=== PATIENT | female | born 1995 | race Caucasian/White ===

== ENCOUNTER 2017-09-05 16:32 | Emergency (ER) | payer OTHER ==
[2017-09-05 16:41] VITALS: BP 138/84
--- NOTE | 2017-09-05 16:45 | UC ---
Throat Pain/Nasal René HPI - HPI Summary HPI Summary: pt c/o nasal congestion, sinus tenderness X 3 weeks. - History of Current Complaint Stated Complaint: RENÉ Time Seen by Provider: 09/05/17 16:35 Hx Obtained From: Patient ?: No Onset/Duration: Gradual Onset, Lasting Weeks - 3, Still Present, Worse Since - onset Severity: Mild Cough: None Associated Signs & Symptoms: Positive: Sinus Discomfort, Other - PND - Epiglottits Risk Factors Epiglottis Risk Factors: Negative - Allergies/Home Medications Allergies/Adverse Reactions: Allergies Allergy/AdvReac Type Severity Reaction Status Date / Time No Known Allergies Allergy Verified 09/05/17 16:41 Home Medications: Home Medications Dextromethorphan-Phenylephrine [Day Time Multi-Symptom Co 10-5-325 mg] 1 cap PO DAILY 09/05/17 [History Confirmed 09/05/17] Fluticasone NASAL SPRAY 50MCG* [Flonase NASAL SPRAY 50MCG*] 2 spray BOTH NARES DAILY 09/05/17 [History Confirmed 09/05/17] Norethindrone Acetate-Ethinyl [Lo Loestrin Fe 1 mg-10 Mcg / 10 Mcg] 1 tab PO DAILY 09/05/17 [History Confirmed 09/05/17] Pseudoephedrine HCL ER TAB* [Sudafed 12 Hour*] 120 mg PO BID 09/05/17 [History Confirmed 09/05/17] PMH/Surg Hx/FS Hx/Imm Hx Previously Healthy: Yes - Surgical History Surgical History: Yes Surgery Procedure, Year, and Place: [facility] - Family History Known Family History: Positive: Cardiac Disease - Social History Occupation: Employed Full-time Lives: With Family Alcohol Use: Occasionally Substance Use Type: None Smoking Status (MU): Never Smoked Tobacco Have You Smoked in the Last Year: No Review of Systems Constitutional: Negative, Other - Pt states that she "never gets a fever when she is sick" Skin: Negative Eyes: Negative ENT: Sinus Congestion, Sinus Pain/Tenderness, Other - PND Respiratory: Negative Cardiovascular: Negative Gastrointestinal: Negative Genitourinary: Negative Motor: Negative Neurovascular: Negative Musculoskeletal: Negative Neurological: Headache Psychological: Negative Is Patient Immunocompromised?: No All Other Systems Reviewed And Are Negative: Yes Physical Exam Triage Information Reviewed: Yes Appearance: Well-Appearing Vital Signs: Initial Vital Signs Temp 98.1 F 09/05/17 16:37 Pulse 86 09/05/17 16:37 Resp 16 09/05/17 16:37 BP 138/84 09/05/17 16:37 Pulse Ox 100 09/05/17 16:37 Vital Signs Reviewed: Yes Eye Exam: Normal ENT: Positive: Nasal congestion Neck exam: Normal Respiratory Exam: Normal Cardiovascular Exam: Normal Musculoskeletal Exam: Normal Neurological Exam: Normal Psychological Exam: Normal Skin Exam: Normal Throat Pain/Nasal Course/Dx - Differential Dx/Diagnosis Differential Diagnosis/HQI/PQRI: Sinusitis Provider Diagnoses: sinusitis Discharge - Discharge Plan Condition: Stable Disposition: HOME Prescriptions: Amoxicillin PO (*) [Amoxicillin 875 MG (*)] 875 mg PO Q12H #20 tab Patient Education Materials: Sinusitis (ED) Referrals: [facility] [Outside] - If Needed
== END 2017-09-05 16:51 | disposition home or self-care (01) ==
LOC: UCCORT 16:32
DX: J32.9 Chronic sinusitis, unspecified (principal)
CPT/HCPCS: 99202; G0463

== ENCOUNTER 2017-12-24 09:19 | Emergency (ER) | payer OTHER ==
[2017-12-24 09:31] VITALS: BP 133/87
--- NOTE | 2017-12-24 09:51 | UC ---
Timmy Bone Jennifer, scribed for Stephanie Prince MD on 12/24/17 at 0946 . Abdominal Pain Female HPI - HPI Summary HPI Summary: The patient is a 22 year old female who presents with abdominal pain in the RUQ for three days. The patient reports the pain is a constant pulled muscle feeling and rates it a 6/10 today. Deep breaths, movement, palpation increase pain. Pt states that she also noticed that food aggravates the pain and she is concerned for her gallbladder. Pt states that is she sits still, her pain "goes down" to 2/10. She additionally complains of on-and-off nausea, diarrhea, and belching. No back pain The patient denies issues with passing gas, dysuria, fever, and chill. She took 800 mg of Ibuprofen two times, but it didnt help. The patient also adds that she got an IUD in June and has an irregular menstrual cycle but thinks her last cycle was around Nov 22. Patients medications reviewed this visit. - History of Current Complaint Chief Complaint: UCAbdominalPain Stated Complaint: ABD PAIN Hx Obtained From: Patient Hx Last Menstrual Period: 11/22/17 Onset/Duration: Sudden Onset, Lasting Days, Still Present Timing: Constant Severity Initially: Moderate Severity Currently: Moderate Pain Intensity: 6 Pain Scale Used: 0-10 Numeric Location: Discrete At: RUQ Radiates: No Character: Other - like a "Pulled muscle" Aggravating Factor(s): Food, Movement, Deep Breaths Alleviating Factor(s): Nothing Associated Signs and Symptoms: Positive: Other: - intermittent nausea, diarrhea , belching. NEGATIVE: issues with passing gas, dysuria, fever, chill Allergies/Adverse Reactions: Allergies Allergy/AdvReac Type Severity Reaction Status Date / Time No Known Allergies Allergy Verified 12/24/17 09:31 PMH/Surg Hx/FS Hx/Imm Hx Previously Healthy: Yes - NEG: HTN, DM Neurological History: Migraine - Surgical History Surgical History: Yes Surgery Procedure, Year, and Place: [facility] - Family History Known Family History: Positive: Cardiac Disease, Hypertension, Diabetes - Social History Alcohol Use: Occasionally Substance Use Type: None Smoking Status (MU): Never Smoked Tobacco Have You Smoked in the Last Year: No Review of Systems Constitutional: Negative - Fver, chills Gastrointestinal: Abdominal Pain, Diarrhea, Nausea, Other - Belching Genitourinary: Negative - Issues with passing gas, dysuria All Other Systems Reviewed And Are Negative: Yes Physical Exam Triage Information Reviewed: Yes Vital Signs: Initial Vital Signs Temp 97.7 F 12/24/17 09:28 Pulse 84 12/24/17 09:28 Resp 17 12/24/17 09:28 BP 133/87 12/24/17 09:28 Pulse Ox 100 12/24/17 09:28 Vital Signs Reviewed: Yes Eye Exam: Normal Eyes: Positive: Conjunctiva Clear ENT Exam: Normal ENT: Positive: Normal ENT inspection, Hearing grossly normal, Pharynx normal, Pharyngeal erythema, TMs normal Dental Exam: Normal Neck exam: Normal Neck: Positive: Supple, Nontender, No Lymphadenopathy Respiratory Exam: Normal Respiratory: Positive: Chest non-tender, Lungs clear, Normal breath sounds, No respiratory distress, No accessory muscle use Cardiovascular Exam: Normal Cardiovascular: Positive: RRR, No Murmur Abdomen Description: Positive: Other: - Mild TTP inferior right lower rib margin , anterior surface. No guarding, no rebound. soft + BS no hepatomegaly. No childress's no CVA Bowel Sounds: Positive: Present Musculoskeletal Exam: Normal Musculoskeletal: Positive: Strength Intact Neurological Exam: Normal Neurological: Positive: Alert, Muscle Tone Normal Psychological Exam: Normal Psychological: Positive: Normal Response To Family Skin Exam: Normal Diagnostics - Laboratory Diagnostic Studies Completed/Ordered: Ultrasound Abdomen. Interpreted by a radiologist. IMPRESSION: Negative RIGHT upper quadrant ultrasound. Dr. Prince has reviewed this report. Re-Evaluation - Re-Evaluation First Eval Comment: reviewed ultrasound with pt. d/w pt regarding gerd, shyla and acalculus cholecysitis - low suspicion. recommend heat. motrin/apap. rest. f /u with PCP in [place]. strict return precautions discussed. Pt states understanding and agreement with plan. SO at bedside Abd Pain Female Course/Dx - Course Course Of Treatment: Pt presents with right anterior low rib, abd pain x 24 hour. Pain worse with movement and palpation. Pt states pain wirse with food, but better with rest. no analgesia taken today, motrin tomorrow. pt with mild RUQ with direct palp. easily changes positioin without discomfort. Will check ultrasound for stones. APAP (after second to npo status). reassess - Differential Dx/Diagnosis Provider Diagnoses: abdominal pain Discharge - Discharge Plan Condition: Stable Disposition: HOME Patient Education Materials: Acute Abdominal Pain (ED) Referrals: No Primary Care Phys,NOPCP [Primary Care Provider] - Additional Instructions: The doctor that evaluated you today thinks it is okay for you to go home. The following is recommended: - Alternate ibuprofen (Advil, Motrin) and Tylenol every 3 hours for pain. Take with food. Do NOT take for more than 4-5 days. Take with food. - Apply heat to your abdomen - slow, gentle stretching exercises - eat small, frequent meals. Start with bland foods: dired toast, crackers, scrambled eggs, crackers. Wait until you are feeling better for 24 hours before eating spicy food, acidic food, tomato based food, fried food. - You should schedule a re-evaluation with your primary doctor in [place] in 2- 3 days. - If you develop fevers, vomiting, increased pain, shortness of breath or anyother concerns you should go to the emergency department for further evaluation The documentation as recorded by the Timmy no Jennifer accurately reflects the service I personally performed and the decisions made by , Stephanie Prince MD.
--- NOTE | 2017-12-24 10:37 | RAD ---
Indication: 2 days RIGHT upper quadrant pain with food. Comparison: No relevant prior exams available on the [facility] [place]. Technique: RIGHT upper quadrant ultrasound. Report: Appropriate direction flow documented in the portal and hepatic veins. 16 cm liver is normal in echogenicity. Negative for focal hepatic lesions. Negative for intrahepatic biliary dilatation. 3 mm common bile duct. Adequately distended gallbladder with normal 3 mm wall is without pathologic finding. Negative for sonographic Jameson's sign. Conspicuity of the pancreas is limited due to bowel gas. The visualized pancreas is unremarkable. Negative for ascites. 10.7 cm RIGHT kidney is unremarkable. IMPRESSION: Negative RIGHT upper quadrant ultrasound.
[2017-12-24] MEDS ORDERED: Acetaminophen TAB* 325 MG PO ONE (10:54)
== END 2017-12-24 11:19 | disposition home or self-care (01) ==
LOC: UCEAST 09:19
DX: R10.11 Right upper quadrant pain (principal); Z32.02 Encounter for pregnancy test, result negative
CPT/HCPCS: 76705; 81003; 84702; 87086; 99212; A9270-GY; G0463

== ENCOUNTER 2018-02-08 08:50 | Emergency (ER) | payer OTHER ==
[2018-02-08 09:02] VITALS: BP 136/79
--- NOTE | 2018-02-08 09:09 | UC ---
Eye Complaint HPI - HPI Summary HPI Summary: C/O bilateral eye discharge for the last 2 days. Eyes crusted shut this morning. - History of Current Complaint Chief Complaint: UCEye Stated Complaint: EYE COMPLAINT Time Seen by Provider: 02/08/18 08:59 Hx Obtained From: Patient Hx Last Menstrual Period: IUD ?: No Onset/Duration: Sudden Onset, Lasting Days - 2, Worse Since - onset Timing: Constant Severity Initially: Mild Severity Currently: Moderate Pain Intensity: 4 Location of Injury: Conjunctiva Character: Foreign Body Sensation Aggravating Factor(s): Blinking Alleviating Factor(s): Nothing Associated Signs And Symptoms: Positive: Drainage (Purulent) - Risk Factors Penetrating Injury Risk Factor: Negative Globe Rupture Risk Factors: Negative - Allergies/Home Medications Allergies/Adverse Reactions: Allergies Allergy/AdvReac Type Severity Reaction Status Date / Time Sulfa (Sulfonamide Allergy Swelling Verified 02/08/18 08:57 Antibiotics) Home Medications: Home Medications Levonorgestrel (Iud) [Kyleena IUD] 1 applic ONCE 02/08/18 [History Confirmed ] PMH/Surg Hx/FS Hx/Imm Hx Previously Healthy: Yes - Surgical History Surgical History: Yes Surgery Procedure, Year, and Place: [facility] - Family History Known Family History: Positive: Cardiac Disease, Hypertension, Diabetes - Social History Occupation: Employed Full-time Lives: With Family - with BF Alcohol Use: Weekly Alcohol Amount: once/week Substance Use Type: None Smoking Status (MU): Never Smoked Tobacco Have You Smoked in the Last Year: No Review of Systems Eyes: Drainage, Eye Redness Is Patient Immunocompromised?: No All Other Systems Reviewed And Are Negative: Yes Physical Exam Triage Information Reviewed: Yes Appearance: Well-Appearing, No Pain Distress, Well-Nourished Vital Signs: Initial Vital Signs Temp 97.8 F 02/08/18 08:58 Pulse 68 02/08/18 08:58 Resp 15 02/08/18 08:58 BP 136/79 02/08/18 08:58 Pulse Ox 99 02/08/18 08:58 Vital Signs Reviewed: Yes Eyes: Positive: Conjunctiva Inflamed - OU. OD>OS, Discharge ENT: Positive: Pharynx normal, TMs normal Neck exam: Normal Respiratory Exam: Normal Cardiovascular Exam: Normal Musculoskeletal Exam: Normal Neurological Exam: Normal Psychological Exam: Normal Skin Exam: Normal Eye Complaint Course/Dx - Differential Dx/Diagnosis Differential Diagnosis/HQI/PQRI: Conjunctivitis, Corneal Abrasion, Keratitis, Uveitis Provider Diagnoses: Acute bilateral viral conjunctivitis Discharge - Sign-Out/Discharge Documenting (check all that apply): Discharge/Admit/Transfer - Discharge Plan Condition: Stable Disposition: HOME Prescriptions: Erythromycin OPTH OINT* [Erythromycin 0.5% OPTH OINT*] 1 applic BOTH EYES TID # 7 gm Patient Education Materials: Conjunctivitis (ED), Erythromycin (Into the eye) Referrals: Non Staff,Doctor [Primary Care Provider] - Additional Instructions: EYE OINTMENT USE: Wash hands. Place 1/4" strip across tip of finger. Pull lower lid down with the index finger and stabilize the ointment finger with the middle finger and scrape the ointment off on the lid. Pull the lid out and let go as you look down. - Billing Disposition and Condition Condition: STABLE Disposition: HOME
== END 2018-02-08 09:21 | disposition home or self-care (01) ==
LOC: UCCORT 08:50
DX: H10.023 Other mucopurulent conjunctivitis, bilateral (principal); Z88.2 Allergy status to sulfonamides
CPT/HCPCS: 99212; G0463

== ENCOUNTER 2018-02-27 18:03 | Emergency (ER) | payer OTHER ==
[2018-02-27 18:21] VITALS: BP 146/81
--- NOTE | 2018-02-27 19:18 | UC ---
Throat Pain/Nasal René HPI - HPI Summary HPI Summary: Awoke with a sore throat today. Also has a bug bite on her right lower leg that had been itched and is now red and tender with surrounding erythema - History of Current Complaint Chief Complaint: UCRespiratory Stated Complaint: SORE THROAT, SKIN COMPLAINT Time Seen by Provider: 02/27/18 19:04 Hx Obtained From: Patient Hx Last Menstrual Period: IUD ?: No Onset/Duration: Sudden Onset Pain Intensity: 5 Pain Scale Used: 0-10 Numeric Cough: None Associated Signs & Symptoms: Positive: Negative - Allergies/Home Medications Allergies/Adverse Reactions: Allergies Allergy/AdvReac Type Severity Reaction Status Date / Time Sulfa (Sulfonamide Allergy Swelling Verified 02/27/18 18:16 Antibiotics) PMH/Surg Hx/FS Hx/Imm Hx Previously Healthy: Yes - Surgical History Surgical History: Yes Surgery Procedure, Year, and Place: [facility] - Family History Known Family History: Positive: Cardiac Disease, Hypertension, Diabetes - Social History Occupation: Employed Full-time Lives: With Family Alcohol Use: Occasionally Alcohol Amount: once/week Substance Use Type: None Smoking Status (MU): Never Smoked Tobacco Have You Smoked in the Last Year: No - Immunization History Most Recent Tetanus Shot: UTD Review of Systems Constitutional: Negative Skin: Other - spreading erythema around and insect bite 5 days ago Eyes: Negative ENT: Sore Throat Respiratory: Negative Cardiovascular: Negative Gastrointestinal: Negative Genitourinary: Negative Motor: Negative Neurovascular: Negative Musculoskeletal: Negative Neurological: Negative Psychological: Negative Is Patient Immunocompromised?: No All Other Systems Reviewed And Are Negative: Yes Physical Exam Triage Information Reviewed: Yes Appearance: Well-Appearing, No Pain Distress, Well-Nourished Vital Signs: Initial Vital Signs Temp 98.3 F 02/27/18 18:17 Pulse 83 02/27/18 18:17 Resp 16 02/27/18 18:17 BP 146/81 02/27/18 18:17 Pulse Ox 100 02/27/18 18:17 Vital Signs Reviewed: Yes Eye Exam: Normal Eyes: Positive: Conjunctiva Clear ENT Exam: Normal ENT: Positive: Normal ENT inspection, Hearing grossly normal, Pharyngeal erythema, Uvula midline, Other - viral ulceration on soft palate. Negative: Nasal congestion, TMs normal, Muffled voice, Sinus tenderness Dental Exam: Normal Neck exam: Normal Neck: Positive: Supple, Nontender, No Lymphadenopathy Respiratory Exam: Normal Respiratory: Positive: Chest non-tender, Lungs clear, Normal breath sounds, No respiratory distress, No accessory muscle use Cardiovascular Exam: Normal Cardiovascular: Positive: RRR, No Murmur, Pulses Normal, Brisk Capillary Refill Musculoskeletal Exam: Normal Musculoskeletal: Positive: Strength Intact, ROM Intact, No Edema Neurological Exam: Normal Neurological: Positive: Alert, Muscle Tone Normal Psychological Exam: Normal Psychological: Positive: Normal Response To Family Skin Exam: Normal Skin: Positive: Other - 2.5 x1 cm firm erythemic area, with surround 3 cm light erythema Diagnostics - Laboratory Diagnostic Studies Completed/Ordered: RST (-) Throat Pain/Nasal Course/Dx - Course Assessment/Plan: keflex, phenol spray tylenol, ibuprofen follow BP with pcp - Differential Dx/Diagnosis Provider Diagnoses: viral pharyngitis, cellulitis secondary to insect bite, elevated BP with hx of hypertension Discharge - Sign-Out/Discharge Documenting (check all that apply): Discharge/Admit/Transfer - Discharge Plan Condition: Stable Disposition: HOME Prescriptions: Cephalexin CAP* [Keflex CAP*] 500 mg PO TID #21 cap Patient Education Materials: Cellulitis (ED), Hand, Foot, and Mouth Disease (ED ), Viral Syndrome (ED), Hypertension (ED), Heat Pack Application (ED) Forms: *Work Release Referrals: JONAS Galdamez [Medical Doctor] - 2 Weeks - Billing Disposition and Condition Condition: STABLE Disposition: HOME
== END 2018-02-27 19:31 | disposition home or self-care (01) ==
LOC: UCCORT 18:03
DX: J02.9 Acute pharyngitis, unspecified (principal); S80.861A Insect bite (nonvenomous), right lower leg, initial encounter; L03.115 Cellulitis of right lower limb; W57.XXXA Bitten or stung by nonvenomous insect and other nonvenomous arthropods, initial encounter; Y92.9 Unspecified place or not applicable; I10 Essential (primary) hypertension; Z88.2 Allergy status to sulfonamides
CPT/HCPCS: 87651; 99212; G0463

== ENCOUNTER 2018-07-29 17:11 | Emergency (ER) | payer OTHER ==
--- NOTE | 2018-08-03 14:07 | UC ---
Discharge - Sign-Out/Discharge Documenting (check all that apply): Post-Discharge Follow Up All imaging exams completed and their final reports reviewed: No Studies - Discharge Plan Referrals: No Primary Care Phys,NOPCP [Primary Care Provider] -
== END 2018-07-29 18:24 | disposition left against medical advice (07) ==
LOC: UCCORT 17:11
DX: J34.89 Other specified disorders of nose and nasal sinuses (principal); Z53.21 Procedure and treatment not carried out due to patient leaving prior to being seen by health care provider